=== PATIENT | female | born 1945 | race Caucasian/White ===

== ENCOUNTER 2019-01-31 14:32 | Emergency (ER) | payer OTHER ==
[~2019-01-31] VITALS: Ht 157.5 cm; Wt 59.0 kg
== END 2019-01-31 19:45 | disposition home or self-care (01) ==
LOC: ER 14:32
DX: S52.001A Unspecified fracture of upper end of right ulna, initial encounter for closed fracture (principal); W18.39XA Other fall on same level, initial encounter; Y93.89 Activity, other specified; Y92.814 Boat as the place of occurrence of the external cause; Y99.8 Other external cause status